=== PATIENT | female | born 1980 | race Caucasian/White ===

== ENCOUNTER 2019-10-09 10:04 | Emergency (ER) | payer MEDICAID, OTHER ==
[~2019-10-09] VITALS: Ht 165.1 cm; Wt 73.5 kg
[~2019-10-09 10:04] MED LIST: PRENATAL VITS.
--- NOTE | 2019-10-09 10:11 | NUR ---
PATIENT AMBULATED STEADY GAIT TO BED 9.
[2019-10-09 10:15] VITALS: BP 101/62
--- NOTE | 2019-10-09 10:22 | NUR ---
39/F TO ED WITH ABD CRAMPING, N/V/D S/P EATING [employer]ILI [employer] FRIES LAST NIGHT. ABD IS SOFT NON TENDER, NO OBVIOUS DISTENTION NOTED. BOWEL SOUNDS ACTIVE. DENIES PAIN UPON PALPATION. IN BED FOR MD WEBER.
--- NOTE | 2019-10-09 10:36 | NUR ---
DR. STATON EVALUATING PT AT BEDSIDE.
[2019-10-09] MEDS ORDERED: ONDANSETRON 4 MG/2 ML VIAL IVP ONE (10:40)
[2019-10-09] MEDS ORDERED: NACL 0.9% 1,000 ML IV ONE (10:40)
--- NOTE | 2019-10-09 11:38 | NUR ---
PT STATES NAUSEA DECREASING; SHE FEELS BETTER.
[2019-10-09] MEDS ORDERED: METOCLOPRAMIDE 10 MG/2 ML INJ VIAL IVP ONE (12:35)
[2019-10-09] MEDS ORDERED: diphenhydrAMINE 50 MG/ML VIAL IVP ONE (12:35)
--- NOTE | 2019-10-09 13:48 | NUR ---
Patient discharged with v/s stable. Written and verbal after care instructions ABOUT NAUSEA, VOMITTING, AND DIARRHEA given and explained. Patient alert, oriented and verbalized understanding of instructions. Ambulatory with steady gait. All questions addressed prior to discharge. ID band removed. Patient advised to follow up with PMD. Rx of BENADRYL AND REGLAN given. Patient educated on indication of medication including possible reaction and side effects. Opportunity to ask questions provided and answered.
[2019-10-09 13:49] VITALS: BP 97/55
--- NOTE | 2019-10-13 13:40 | NUR ---
Late entry. Confirmed with RN that 0.9 NS IV completed at 1210
== END 2019-10-09 13:48 | disposition home or self-care (01) ==
LOC: MED 10:04
DX: R11.2 Nausea with vomiting, unspecified (principal); R19.7 Diarrhea, unspecified; E11.9 Type 2 diabetes mellitus without complications
CPT/HCPCS: 96361; 96374; 96375; 99283; J1200; J2405; J2765

== ENCOUNTER 2019-11-24 11:23 | Emergency (ER) | payer MEDICAID ==
[~2019-11-24] VITALS: Ht 162.6 cm; Wt 76.2 kg
[2019-11-24 11:35] VITALS: BP 94/62
--- NOTE | 2019-11-24 11:47 | NUR ---
Patient ambulated to bed 12. RN evaluating patient at bedside.
--- NOTE | 2019-11-24 11:52 | NUR ---
39 Y/O F C/C DIZZINESS AND LOC X 0900 HRS TODAY. PER PT FELL TO FLOOR AND HIT HEAD. PICKED UP BY . PT NKA. HX DM. RX METFORMIN. VOMITING SINCE THIS AM. NO DIARRHEA. NEURO ASSESSMENT WDL. SIDE RAIL X1.
[2019-11-24] MEDS ORDERED: NACL 0.9% 1,000 ML IV ONE ×2 (12:00→15:50)
--- NOTE | 2019-11-24 12:12 | NUR ---
XRAY AT BEDSIDE
--- NOTE | 2019-11-24 12:14 | NUR ---
PT TAKEN TO CT VIA FELIPE
--- NOTE | 2019-11-24 12:15 | NUR ---
Patient taken to CT scan via gurney by [employer].
[2019-11-24 12:49] LABS: BASOPHILS % (AUTO) 0.4 % (0.0-2.0); EOSINOPHILS # (AUTO) 0.1 K/uL (0-0.4); EOSINOPHILS % (AUTO) 1.1 % (0.0-4.0); HEMATOCRIT 35.7 % (36-48); HEMOGLOBIN 11.6 g/dL (12.0-16.0); LYMPHOCYTES # (AUTO) 1.5 K/uL (2.5-16.5); LYMPHOCYTES % (AUTO) 21.7 % (20.5-51.1); MEAN CORPUSCULAR HEMOGLOBIN 26 pg (27-31); MEAN CORPUSCULAR HGB CONC 32 g/dL (33-37); MEAN CORPUSCULAR VOLUME 79.3 fL (80-94); MONOCYTES # (AUTO) 0.6 K/uL (0.8-1.0); MONOCYTES % (AUTO) 8.2 % (1.7-9.3); NEUTROPHILS # (AUTO) 4.8 K/uL (1.8-7.7); NEUTROPHILS % (AUTO) 68.6 % (42.2-75.2); PLATELET COUNT (AUTO) 214 K/uL (140-450); RED BLOOD CELL COUNT(AUTO) 4.49 MIL/uL (4.20-5.40); RED CELL DISTRIBUTION WIDTH 17.4 % (11.6-13.7)
[2019-11-24 12:57] LABS: ANION GAP 11.4 (8-16); CARBON DIOXIDE 28.6 mmol/L (21-32); CREATININE 0.7 mg/dL (0.6-1.3)
[2019-11-24 13:06] LABS: ALBUMIN 3.4 g/dL (3.4-5.0); TOTAL BILIRUBIN 0.2 mg/dL (0.0-1.0)
--- NOTE | 2019-11-24 14:20 | NUR ---
pt resting in bed, side rail x1
--- NOTE | 2019-11-24 15:10 | NUR ---
checked pt, pt state she still has headache. no urine sample yet. pt does not have urine at this time.
[2019-11-24] MEDS ORDERED: ACETAMINOPHEN EXTRA STRENGTH 500 MG TAB PO ONE (15:15)
[2019-11-24 17:41] VITALS: BP 110/75
--- NOTE | 2019-11-24 17:43 | NUR ---
Patient discharged with v/s stable. Written and verbal after care instructions given and explained. Patient verbalized understanding. Ambulatory with to car. All questions addressed prior to discharge. Advised to follow up with PMD.
== END 2019-11-24 17:43 | disposition home or self-care (01) ==
LOC: MED 11:23
DX: R42 Dizziness and giddiness (principal); R55 Syncope and collapse; M54.2 Cervicalgia; E11.9 Type 2 diabetes mellitus without complications; D64.9 Anemia, unspecified
CPT/HCPCS: 36415; 70450; 71045; 80053; 84484; 85025; 93005; 96360; 96361; 99284; J7030

== ENCOUNTER 2020-01-08 12:01 | Emergency (ER) | payer MEDICAID ==
[~2020-01-08] VITALS: Ht 165.1 cm; Wt 76.2 kg
[2020-01-08 12:17] VITALS: BP 123/74
--- NOTE | 2020-01-08 12:20 | NUR ---
Patient ambulated to bed 3. RN evaluating patient at bedside.
--- NOTE | 2020-01-08 12:29 | NUR ---
COVERING PRIMARY RN FOR LUNCH RELIEF --- C/O RT EAR PAIN UNPROVOKED X THIS MORNING. PT DENIES INJURY/PAIN. DENIES HEARING LOSS. IN BED FOR MSE.
--- NOTE | 2020-01-08 12:53 | NUR ---
REPORT RECEIVED FROM JOHN RN
--- NOTE | 2020-01-08 12:53 | NUR ---
REPORT TO PRIMARY NURSE. ALL CARE TRASNFERRED.
--- NOTE | 2020-01-08 13:26 | NUR ---
PT SITTING UP IN POSITION OF COMFORT, LIGHTS DIMMED, BED LOW AND LOCKED, 1 SIDERAIL UP, VSS. WILL CONTINUE TO MONITOR
--- NOTE | 2020-01-08 14:00 | NUR ---
PT RESTING IN BED IN POSITION OF COMFORT, BED LOW AND LOCKED, 1 SIDERAIL UP. PT WAITING FOR DISCHARGE. WILL CONTINUE TO MONITOR
[2020-01-08] MEDS: KETOROLAC 30 MG/ML VIAL IM ONE (14:03)
[2020-01-08 14:34] VITALS: BP 103/72
--- NOTE | 2020-01-08 14:50 | NUR ---
Patient discharged with v/s stable. Written and verbal after care instructions given and explained. Patient alert, oriented and verbalized understanding of instructions. Ambulatory with steady gait. All questions addressed prior to discharge. ID band removed. Patient advised to follow up with PMD. Rx of IBUPROFEN/AUGMENTIN given. Patient educated on indication of medication including possible reaction and side effects. Opportunity to ask questions provided and answered.
== END 2020-01-08 14:50 | disposition home or self-care (01) ==
LOC: MED 12:01
DX: H92.01 Otalgia, right ear (principal); E11.9 Type 2 diabetes mellitus without complications
CPT/HCPCS: 96372; 99283; J1885

== ENCOUNTER → 2020-01-29 | Emergency (ER) | payer MEDICAID ==
[~2020-01-29] VITALS: Ht 167.6 cm; Wt 73.0 kg
[2020-01-29 12:31] VITALS: BP 129/73
[2020-01-29 12:40] VITALS: BP 129/73
== END | disposition home or self-care (01) ==
LOC: MED 12:31
DX: J20.9 Acute bronchitis, unspecified (principal); E11.9 Type 2 diabetes mellitus without complications; Z79.899 Other long term (current) drug therapy
CPT/HCPCS: 99283

== ENCOUNTER 2021-08-10 16:11 | Emergency (ER) | payer MEDICAID ==
[~2021-08-10] VITALS: Ht 165.1 cm; Wt 69.9 kg
[2021-08-10 16:25] VITALS: BP 103/46
--- NOTE | 2021-08-10 16:29 | NUR ---
PT SENT TO TENT
--- NOTE | 2021-08-10 16:50 | NUR ---
WANG AND TJ SWABS COLLECTED AND WALKED TO LAB.
--- NOTE | 2021-08-10 17:35 | NUR ---
PATIENT LEFT WITHOUT BEING SEEN BY DR. FLOOD. NO FURTHER CARE PROVIDED FOR PATIENT.
--- NOTE | 2021-08-10 17:35 | NUR ---
Luis morel in EDM - 08/10/21 at 1902 by MEDRJJ PATIENT ELOPED FROM FACILITY. DISCHARGE INSTRUCTIONS NOT GIVEN TO PATIENT. DR. FLOOD NOTIFIED.
== END 2021-08-10 17:35 | disposition left against medical advice (07) ==
LOC: MED 16:11
DX: R09.89 Other specified symptoms and signs involving the circulatory and respiratory systems (principal); Z20.822 Contact with and (suspected) exposure to COVID-19; M79.10 Myalgia, unspecified site; R68.83 Chills (without fever); R50.9 Fever, unspecified; Z53.21 Procedure and treatment not carried out due to patient leaving prior to being seen by health care provider
CPT/HCPCS: 71045; 87426; 99281; U0003; 99284

== ENCOUNTER 2021-12-10 13:34 | Emergency (ER) | payer MEDICAID ==
[~2021-12-10] VITALS: Ht 165.1 cm; Wt 70.3 kg
[2021-12-10 13:38] VITALS: BP 108/70
--- NOTE | 2021-12-10 13:48 | NUR ---
md assessing in pt triage room at this time
[2021-12-10] MEDS ORDERED: metroNIDAZOLE 500 MG TAB PO ONE (13:55)
[2021-12-10] MEDS ORDERED: PENICILLIN G BENZATHINE L-A 1.2 MU/2 ML SYR IM ONE (13:55)
[2021-12-10] MEDS ORDERED: cefTRIAXone 500 MG VIAL IM ONE (13:55)
[2021-12-10] MEDS ORDERED: [UNRECOGNIZED DRUG - CODE] PO (14:11)
[2021-12-10] MEDS ORDERED: FLUC150T PO (14:11)
--- NOTE | 2021-12-10 14:13 | NUR ---
41 y/o female, c/o vaginal discharge, pt states her partner tested positive for stds 2 weeks ago and contacted her today. states she has had 15 interactions with partner. a&o x4 with even and steady gait. lungs clear bl, heart rate even and regular. pt denies dysuria, hematuria, urinary frequency or retention, or anyone sick in the household with the same symptoms. pt denies any fever, cp, sob, or cough at this time. pt states pain is 0/10 at this time. vss. pmh: dm2 nka med: metformin 500mg bid
[2021-12-10] MEDS ORDERED: LIDOCAINE MPF 1% 5 ML ONE (14:18)
--- NOTE | 2021-12-10 14:56 | NUR ---
Patient discharged with v/s stable. Written and verbal after care instructions given and explained. Patient alert, oriented and verbalized understanding of instructions. Ambulatory with steady gait. All questions addressed prior to discharge. ID band removed. Patient advised to follow up with PMD. Rx of Doxycycline Monohydrate, Fluconazole given. Patient educated on indication of medication including possible reaction and side effects. Opportunity to ask questions provided and answered.
== END 2021-12-10 14:56 | disposition home or self-care (01) ==
LOC: MED 13:34
DX: L29.2 Pruritus vulvae (principal); E11.9 Type 2 diabetes mellitus without complications; Z20.2 Contact with and (suspected) exposure to infections with a predominantly sexual mode of transmission; Z79.899 Other long term (current) drug therapy
CPT/HCPCS: 36415; 81002; 81025; 86592; 86703; 96372; 99284; J0561; J0696; J2001; 87491